=== PATIENT | female | born 1980 | race Caucasian/White ===

== ENCOUNTER → 2020-04-05 | Outpatient (CLI) | payer OTHER ==
[~2020-04-05] MED LIST: GADOTERATE 7.5 MMOL/15 ML VIAL ONE
== END | disposition home or self-care (01) ==
LOC: RAD 14:50
PROVIDERS: ATTEND Family Medicine
DX: I26.99 Other pulmonary embolism without acute cor pulmonale (principal); R16.0 Hepatomegaly, not elsewhere classified; J98.11 Atelectasis; R91.1 Solitary pulmonary nodule; K76.9 Liver disease, unspecified
CPT/HCPCS: 71260; 74183; A9575

== ENCOUNTER 2020-09-28 12:42 | Emergency (ER) | payer OTHER ==
[~2020-09-28] VITALS: Ht 157.5 cm; Wt 59.6 kg
--- NOTE | 2020-09-28 12:58 | NUR ---
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
--- NOTE | 2020-09-28 13:18 | NUR ---
DR GANT AT BS FOR EVAL, REPORT GIVEN TO TAMIKO POOLE
[2020-09-28] MEDS ORDERED: SODIUM CHLORIDE FLUSH 10ML SYR IVF ONE (13:30)
[2020-09-28 14:00] LABS: BASOPHILS % (AUTO) 2 % (0-1); EOSINOPHILS % (AUTO) 1 % (1-7); LYMPHOCYTES % (AUTO) 24 % (22-44); MEAN CORPUSCULAR HEMOGLOBIN 37.5 pg (27.0-34.8); MEAN PLATELET VOLUME 6.9 fL (7.4-10.4); MONOCYTES % (AUTO) 12 % (2-9); NEUTROPHILS % (AUTO) 61 % (42-75); PLATELET COUNT 300 x10^3/uL (130-400); RED BLOOD COUNT 3.18 x10^6/uL (3.82-5.3); RED CELL DISTRIBUTION WIDTH 18.4 % (9.6-15.2)
[2020-09-28 14:09] LABS: ALANINE AMINOTRANSFERASE 46 U/L (12-78); ALBUMIN 2.2 g/dL (3.4-5.0); ANION GAP 9 mmol/L (5-15); CALCIUM 7.5 mg/dL (8.5-10.1); CHLORIDE 106 mmol/L (98-107); CREATININE 0.73 mg/dL (0.55-1.02)
[2020-09-28 14:13] LABS: INTERNATIONAL NORMALIZED RATIO 1.3 (0.93-1.1); PROTHROMBIN TIME 13.7 Seconds (9.6-11.5)
[2020-09-28 14:14] LABS: ALKALINE PHOSPHATASE 231 U/L (45-117); BILIRUBIN,TOTAL 0.6 mg/dL (0.2-1.0)
[2020-09-28 14:45] LABS: <PLATELET ESTIMATE> ADEQUATE; <PLT MORPHOLOGY> NORMAL PLT MORPH; ANISOCYTOSIS 1+; OVALOCYTES 1+; POLYCHROMASIA 1+
--- NOTE | 2020-09-28 15:07 | NUR ---
Pt ambulatory to bathroom, steady gait.
[2020-09-28 15:10] VITALS: BP 109/70
== END 2020-09-28 15:35 | disposition home or self-care (01) ==
LOC: ED 14:26
DX: K80.70 Calculus of gallbladder and bile duct without cholecystitis without obstruction (principal); R06.02 Shortness of breath; R00.0 Tachycardia, unspecified; G89.29 Other chronic pain; F17.200 Nicotine dependence, unspecified, uncomplicated; Z86.73 Personal history of transient ischemic attack (TIA), and cerebral infarction without residual deficits
CPT/HCPCS: 36415; 71045; 76705; 80053; 82140; 83690; 83880; 85025; 85610; 93005; 99285